=== PATIENT | male | born 1975 ===

== ENCOUNTER 2021-03-27 06:00 | Day surgery (SDC) | payer OTHER ==
[~2021-03-27 06:00] MED LIST: CATAFLAN PO
[2021-03-27] MEDS ORDERED: PERCOCET 5-3251 EACH PO (16:22)
[2021-03-27] MEDS ORDERED: POLY119PG PO (16:22)
[2021-03-27] MEDS ORDERED: NEURONTIN600 M1 PO (16:22)
== END 2021-03-27 19:10 | disposition home or self-care (01) ==
LOC: CIR.AMB 06:00
PROVIDERS: ATTEND Surgery
DX: K40.20 Bilateral inguinal hernia, without obstruction or gangrene, not specified as recurrent (principal); Z20.822 Contact with and (suspected) exposure to COVID-19